=== PATIENT | female | born 1985 | race Caucasian/White ===

== ENCOUNTER 2020-11-17 09:15 | Emergency (ER) | payer OTHER ==
[~2020-11-17 09:15] MED LIST: COLACE 100MG C100 MG PO; IBUPROFEN600 MG PO; K-DUR TAB 20 M20 MEQ PO; LASIX20 MG PO; ZUBSOLV 5.7-1.1 EACH PO
== END 2020-11-17 15:30 | disposition other institution (70) ==
LOC: ER1 09:15
PROVIDERS: Physician Assistant
DX: F32.9 Major depressive disorder, single episode, unspecified (principal); S61.512A Laceration without foreign body of left wrist, initial encounter; F15.10 Other stimulant abuse, uncomplicated; Z20.822 Contact with and (suspected) exposure to COVID-19; F11.10 Opioid abuse, uncomplicated; X78.1XXA Intentional self-harm by knife, initial encounter; Z88.0 Allergy status to penicillin; F17.210 Nicotine dependence, cigarettes, uncomplicated
CPT/HCPCS: 12002; 80307; 81001; 84703; 99285; U0002

== ENCOUNTER 2021-06-14 08:25 | Emergency (ER) | payer OTHER | END 2021-06-17 09:22 | LOC: ER1 08:25 | DX: U07.1 COVID-19 (principal); F22 Delusional disorders; F23 Brief psychotic disorder; F17.200 Nicotine dependence, unspecified, uncomplicated | CPT/HCPCS: 71045; 93005; 99285; U0002 ==